=== PATIENT | female | born 1975 | race Caucasian/White ===

== ENCOUNTER 2018-11-03 18:13 | Emergency (ER) | payer OTHER ==
[2018-11-03] MEDS ORDERED: IV NORMAL SALINE 1,000ML 1,000 ML IV SCH (18:29)
--- NOTE | 2018-11-03 18:37 | PHYS DOC ---
Past History Past Medical History: Anxiety, GERD, Other Past Surgical History: No Surgical History Alcohol Use: None Drug Use: None Adult General Chief Complaint Chief Complaint: HEADACHE HPI HPI Patient is a 43 year old female who presents with complaint of headache. Patient states she awoke with headache this morning. Notes that she has history of migraine headaches. Has had associated vomiting and light sensitivity. Denies any known fever. Notes pain is mostly along the right side of her head and is throbbing in nature. States that she has tried to take medication at home for her symptoms but is unable to keep anything down due to her nausea and vomiting. Denies abdominal pain, chest pain, weakness, numbness, loss of vision, or difficulty with speech or swallowing. Currently rates her pain as 10 out of 10. Review of Systems Review of Systems Constitutional: Denies fever or chills [] Eyes: Denies change in visual acuity, redness, or eye pain [] HENT: Denies nasal congestion or sore throat [] Respiratory: Denies cough or shortness of breath [] Cardiovascular: Denies chest pain or edema[] GI: Nausea, vomiting, denies abdominal pain, bloody stools or diarrhea [] : Denies dysuria or hematuria [] Musculoskeletal: Denies back pain or joint pain [] Integument: Denies rash or skin lesions [] Neurologic: Headache, denies focal weakness or sensory changes [] All other systems were reviewed and found to be within normal limits, except as documented in this note. Current Medications Current Medications Current Medications Medications (Trade) Dose Ordered Sig/Osei Start Time Stop Time Status Last Admin Dose Admin Diphenhydramine HCl (Benadryl) 25 mg 1X ONCE 11/03/18 18:45 11/03/18 18:46 Ketorolac Tromethamine (Toradol 30mg Vial) 30 mg 1X ONCE 11/03/18 18:45 11/03/18 18:46 Prochlorperazine Edisylate (Compazine) 10 mg 1X ONCE 11/03/18 18:45 11/03/18 18:46 Sodium Chloride 1,000 ml @ 1,000 mls/hr Q1H 11/03/18 18:29 11/03/18 19:28 Allergies Allergies Allergies Coded Allergies Type Severity Reaction Last Updated Verified No Known Drug Allergies 11/03/18 No Physical Exam Physical Exam Constitutional: Alert, afebrile, appears in moderate to severe discomfort. [] HENT: Normocephalic, atraumatic, bilateral external ears normal, oropharynx moist, no oral exudates, nose normal. [] Eyes: PERRLA, photophobia present, EOMI, conjunctiva normal, no discharge. [] Neck: Normal range of motion, no tenderness, supple, no stridor. [] Cardiovascular:Heart rate regular rhythm, no murmur [] Lungs & Thorax: Bilateral breath sounds clear to auscultation [] Abdomen: Bowel sounds normal, soft, no tenderness, no masses, no pulsatile masses. [] Skin: Warm, dry, no erythema, no rash. [] Back: No tenderness, no CVA tenderness. [] Extremities: No tenderness, no cyanosis, no clubbing, ROM intact, no edema. [] Neurologic: Alert and oriented X 3, normal motor function, normal sensory function, no focal deficits noted. [] Current Patient Data Vital Signs Vital Signs Date Time Temp Pulse Resp B/P (MAP) Pulse Ox O2 Delivery O2 Flow Rate FiO2 11/03/18 18:26 98.2 82 18 100 Room Air Lab Results Laboratory Tests Test 11/03/18 18:55 White Blood Count 7.8 x10^3/uL Red Blood Count 4.50 x10^6/uL Hemoglobin 13.5 g/dL Hematocrit 40.3 % Mean Corpuscular Volume 89 fL Mean Corpuscular Hemoglobin 30 pg Mean Corpuscular Hemoglobin Concent 34 g/dL Red Cell Distribution Width 12.7 % Platelet Count 424 x10^3/uL Neutrophils (%) (Auto) 52 % Lymphocytes (%) (Auto) 38 % Monocytes (%) (Auto) 7 % Eosinophils (%) (Auto) 2 % Basophils (%) (Auto) 1 % Neutrophils # (Auto) 4.0 x10^3uL Lymphocytes # (Auto) 3.0 x10^3/uL Monocytes # (Auto) 0.6 x10^3/uL Eosinophils # (Auto) 0.1 x10^3/uL Basophils # (Auto) 0.1 x10^3/uL Sodium Level 140 mmol/L Potassium Level 4.2 mmol/L Chloride Level 103 mmol/L Carbon Dioxide Level 27 mmol/L Anion Gap 10 Blood Urea Nitrogen 12 mg/dL Creatinine 0.8 mg/dL Estimated GFR (Cockcroft-Gault) 78.3 BUN/Creatinine Ratio 15 Glucose Level 81 mg/dL Calcium Level 9.1 mg/dL Magnesium Level 2.0 mg/dL Total Bilirubin 0.5 mg/dL Aspartate Amino Transf (AST/SGOT) 21 U/L Alanine Aminotransferase (ALT/SGPT) 18 U/L Alkaline Phosphatase 77 U/L Total Protein 7.4 g/dL Albumin 3.7 g/dL Albumin/Globulin Ratio 1.0 Current Medications Medications (Trade) Dose Ordered Sig/Osei Route PRN Reason Start Time Stop Time Status Last Admin Dose Admin Sodium Chloride 1,000 ml @ 1,000 mls/hr Q1H IV 11/03/18 18:29 11/03/18 19:28 DC 11/03/18 19:02 Prochlorperazine Edisylate (Compazine) 10 mg 1X ONCE IV 11/03/18 18:45 11/03/18 18:46 DC 11/03/18 19:02 Diphenhydramine HCl (Benadryl) 25 mg 1X ONCE IVP 11/03/18 18:45 11/03/18 18:46 DC 11/03/18 19:03 Ketorolac Tromethamine (Toradol 30mg Vial) 30 mg 1X ONCE IV 11/03/18 18:45 11/03/18 18:46 DC 11/03/18 19:02 EKG EKG Not performed[] Radiology/Procedures Radiology/Procedures Not performed[] Course & Med Decision Making Course & Med Decision Making Pertinent Labs and Imaging studies reviewed. (See chart for details) Patient was given IV fluids, Compazine, Benadryl, and Toradol. On reevaluation, the patient is resting much more comfortably and says that her headache is much better. Diagnosis appears consistent with migraine headache. Patient discharged with prescription for Zofran and Fioricet. Advised follow-up with primary doctor in the next 4 days for reevaluation. Advised return to emergency department for any worsening symptoms. Patient was understanding and in agreement with treatment plan.[] Dragon Disclaimer Dragon Disclaimer This electronic medical record was generated, in whole or in part, using a voice recognition dictation system. Departure Departure: Impression: Primary Impression: Migraine headache Disposition: HOME, SELF-CARE Condition: IMPROVED Referrals: [facility] (PCP) Patient Instructions: Migraine Headache Additional Instructions: Follow-up with your primary doctor in the next 4 days for reevaluation. Return to the emergency department for any worsening symptoms. Scripts Ondansetron (ONDANSETRON ODT) 4 Mg Tab.rapdis 1 TAB PO Q8HRS PRN for NAUSEA/VOMITING, #20 TAB Prov: GIOVANY MCKEON MD 11/03/18 Butalb/Acetaminophen/Caffeine ([id number] 50-325-40) 1 Each Tablet 1-2 EACH PO Q6HRS PRN for HEADACHE, #30 TAB Prov: GIOVANY MCKEON MD 11/03/18 Problem Qualifiers Primary Impression: Migraine headache Migraine type: unspecified Status migrainosus presence: without status migrainosus Intractability: not intractable Qualified Codes: G43.909 - Migraine, unspecified, not intractable, without status migrainosus GIOVANY MCKEON MD November 03, 2018 18:37
[2018-11-03] MEDS ORDERED: KETOROLAC 30 MG/ML VIAL. IV ONE (18:45)
[2018-11-03] MEDS ORDERED: PROCHLORPERAZINE 10 MG/2 ML VIAL. IV ONE (18:45)
[2018-11-03] MEDS ORDERED: diphenhydrAMINE 50 MG/ML VIAL IVP ONE (18:45)
[2018-11-03 19:22] LABS: BASO # 0.1 x10^3/uL (0.0-0.2); BASO % 1 % (0-3); EOS # 0.1 x10^3/uL (0.0-0.7); EOS % 2 % (0-3); HEMATOCRIT 40.3 % (36.0-47.0); HEMOGLOBIN 13.5 g/dL (12.0-15.5); LYMPH % 38 % (24-48); MEAN CORPUSCULAR HEMOGLOBIN 30 pg (25-35); MEAN CORPUSCULAR HGB CONC 34 g/dL (31-37); MEAN CORPUSCULAR VOLUME 89 fL (79-100); MONO # 0.6 x10^3/uL (0.0-1.1); MONO % 7 % (0-9); NEUT % 52 % (31-73); PLATELET COUNT 424 x10^3/uL (140-400); RED CELL DISTRIBUTION WIDTH 12.7 % (11.5-14.5); WHITE BLOOD COUNT 7.8 x10^3/uL (4.0-11.0)
[2018-11-03 19:37] LABS: ALBUMIN 3.7 g/dL (3.4-5.0); CALCIUM 9.1 mg/dL (8.5-10.1); CREATININE 0.8 mg/dL (0.6-1.0); GFR 78.3; POTASSIUM 4.2 mmol/L (3.5-5.1); TOTAL BILIRUBIN 0.5 mg/dL (0.2-1.0); TOTAL PROTEIN 7.4 g/dL (6.4-8.2)
[2018-11-03] MEDS ORDERED: BUTA1TAB23 PO (20:16)
[2018-11-03] MEDS ORDERED: ONDA4TAB12 PO (20:16)
[2018-11-03 20:30] VITALS: BP 94/57
== END 2018-11-03 20:30 | disposition home or self-care (01) ==
LOC: ER 18:13
DX: G43.909 Migraine, unspecified, not intractable, without status migrainosus (principal); F41.9 Anxiety disorder, unspecified; K21.9 Gastro-esophageal reflux disease without esophagitis; R11.2 Nausea with vomiting, unspecified
CPT/HCPCS: 36415; 80053; 83735; 85025; 96361; 96374; 96375; 99284; J0780; J1200; J1885; J7030

== ENCOUNTER 2020-07-07 20:09 | Emergency (ER) | payer SELFPAY ==
[~2020-07-07] VITALS: Ht 152.4 cm; Wt 45.5 kg
[~2020-07-07 20:09] MED LIST: BUTA1TAB23 PO; ONDA4TAB12 PO
--- NOTE | 2020-07-07 20:36 | PHYS DOC ---
Past History Past Medical History: Anxiety, GERD, Other Past Surgical History: No Surgical History Alcohol Use: None Drug Use: None General Adult EDM: Chief Complaint: COUGH HPI: HPI: Patient is a 44-year-old female presents with congestion, fatigue, body aches, dry cough and sore throat. Patient states that she started feeling bad this morning when she woke up. Denies fever, vomiting, diarrhea. Patient states that she is taking Tylenol today to help with the body aches. Last dose of Tylenol was 3 hours ago. Denies being around anyone with recent illness. History of LC H, fibromyalgia, osteoporosis. Review of Systems: Review of Systems: Constitutional: Denies fever or chills Eyes: Denies change in visual acuity HENT: Reports nasal congestion and sore throat Respiratory: Denies cough or shortness of breath Cardiovascular: Denies chest pain or edema GI: Denies abdominal pain, nausea, vomiting, bloody stools or diarrhea : Denies dysuria Musculoskeletal: Denies back pain or joint pain Integument: Denies rash Neurologic: Denies headache, focal weakness or sensory changes Endocrine: Denies polyuria or polydipsia Lymphatic: Denies swollen glands Psychiatric: Denies depression or anxiety Allergies: Allergies: Allergies Coded Allergies Type Severity Reaction Last Updated Verified No Known Drug Allergies 11/03/18 No Physical Exam: PE: Constitutional: Well developed, well nourished, no acute distress, non-toxic appearance. [] HENT: Normocephalic, atraumatic, bilateral external ears normal, oropharynx moist, no oral exudates, nose normal. [] Eyes: PERRLA, EOMI, conjunctiva normal, no discharge. [] Neck: Normal range of motion, no tenderness, supple, no stridor. [] Cardiovascular:Heart rate regular rhythm, no murmur [] Lungs & Thorax: Bilateral breath sounds clear to auscultation [] Abdomen: Bowel sounds normal, soft, no tenderness, no masses, no pulsatile masses. [] Skin: Warm, dry, no erythema, no rash. [] Back: No tenderness, no CVA tenderness. [] Extremities: No tenderness, no cyanosis, no clubbing, ROM intact, no edema. [] Neurologic: Alert and oriented X 3, normal motor function, normal sensory function, no focal deficits noted. [] Psychologic: Affect normal, judgement normal, mood normal. [] EKG: EKG: [] Radiology/Procedures: Radiology/Procedures: []XR CHEST 1V CLINICAL INDICATIONS: Reason: Cough COMPARISON: None available. Findings: No acute lung infiltrate or pleural effusion or pulmonary edema or lung mass or pneumothorax is seen. Old granulomatous disease is seen within the right hilum. The heart size, pulmonary vasculature, mediastinum and both pat are otherwise unremarkable. IMPRESSION: No acute radiographic abnormality is seen. Electronically signed by: Will Rosa MD (07/07/2020 9:16 PM) [id number] Heart Score: Risk Factors: Risk Factors: DM, Current or recent (<one month) smoker, HTN, HLP, family history of CAD, obesity. Risk Scores: Score 0 - 3: 2.5% MACE over next 6 weeks - Discharge Home Score 4 - 6: 20.3% MACE over next 6 weeks - Admit for Clinical Observation Score 7 - 10: 72.7% MACE over next 6 weeks - Early Invasive Strategies Course & Med Decision Making: Course & Med Decision Making Pertinent Labs and Imaging studies reviewed. (See chart for details) []Patient is a 44-year-old female presents with congestion, fatigue, body aches, dry cough and sore throat. Patient states that she started feeling bad this morning when she woke up. Denies fever, vomiting, diarrhea. Patient states that she is taking Tylenol today to help with the body aches. Last dose of T ylenol was 3 hours ago. Denies being around anyone with recent illness. History of LCH, fibromyalgia, osteoporosis. Chest x-ray, flu swab, Covid swab ordered. Chest Xray shows No acute radiographic abnormality is seen. Influenza negative. UA negative for infection. Will call patient with Covid results if positive. Patient is able to ambulate on her own and is hemodynamically stable. Patient most likely has a viral infection and has been given recommendations on treating virus at home. Will call patient with covid results if positive. Dragon Disclaimer: Sukhjinder Disclaimer: This electronic medical record was generated, in whole or in part, using a voice recognition dictation system. Departure Departure: Impression: Primary Impression: Viral syndrome Disposition: 01 DC HOME SELF CARE/HOMELESS Condition: GOOD Referrals: [facility] (PCP) Patient Instructions: Viral Syndrome Additional Instructions: You were seen in the ED today for cough, sore throat, fatigue. Your flu swab came back negative. We will call you if your covid results come back positive. Please self quarantine for 14 days. Take ibuprofen and Tylenol at home for fever and discomfort. Please return to the ED with worsening symptoms or concerns. EMERGENCY DEPARTMENT GENERAL DISCHARGE INSTRUCTIONS Thank you for coming to [facility] (ED) today and trusting us with you care. We trust that you had a positivie experience in our Emergency Department. If you wish to speak to the department management, you may call the director at [phone]. YOUR FOLLOW UP INSTRUCTIONS ARE FOLLOWS: 1. Do you have a private Doctor? If you do not have a private doctor, please ask for a resource list of physicians or clinics that may be able to assist you with follow up care. 2. The Emergency Physician has interpreted your x-rays. The X-Ray specialist will also review them. If there is a change in the findings, you will be notified in 48 hours when at all possible. 3. A lab test or culture has been done, your results will be reviewed and you will be notified if you need a change in treatment. ADDITIONAL INSTRUCTIONS AND INFORMATION: 1. Your care today has been supervised by a physician who is specially trained in emergency care. Many problems require more than one evaluation for a complete diagnosis and treatment. We recommend that you schedule your follow up appointment as recommended to ensure complete treatment of you illness or injury. If you are unable to obtain follow up care and continue to have a problem, or if your condition worsens, we recommend that you return to the ED. 2. We are not able to safely determine your condition over the phone nor are we able to give sound medical advice over the phone. For these safety reasons, if you call for medical advice we will ask you to come to the ED for further evaluation. 3. If you have any questions regarding these discharge instructions please call the ED at [phone]. SAFETY INFORMATION: In the interest of safety, wellness, and injury prevention; we encourage you to wear your sealbelt, if you smoke; quite smoking, and we encourage family to use a protective helmet for bicycling and other sporting events that present an increased risk for head injury. IF YOUR SYMPTOMS WORSEN OR NEW SYMPTOMS DEVELOP, OR YOU HAVE CONCERNS ABOUT YOUR CONDITION; OR IF YOUR CONDITION WORSENS WHILE YOU ARE WAITING FOR YOUR FOLLOW UP APPOINTMENT; EITHER CONTACT YOUR PRIMARY CARE DOCTOR, THE PHYSICIAN WHOSE NAME AND NUMBER YOU WERE GIVEN, OR RETURN TO THE ED IMMEDIATELY. CAMDEN SAHA APRN Jul 07, 2020 20:36
[2020-07-07] MEDS ORDERED: IBUPROFEN 600 MG TABLET. PO ONE (20:45)
[2020-07-07] MEDS ORDERED: ONDANSETRON ODT 4 MG TAB.RAPDIS ONE (20:47)
[2020-07-07] MEDS ORDERED: ONDANSETRON ODT 4 MG TAB.RAPDIS PO ONE (21:00)
--- NOTE | 2020-07-07 21:18 | RAD ---
XR CHEST 1V CLINICAL INDICATIONS: Reason: Cough COMPARISON: None available. Findings: No acute lung infiltrate or pleural effusion or pulmonary edema or lung mass or pneumothora x is seen. Old granulomatous disease is seen within the right hilum. The heart size, pulmonary vascul ature, mediastinum and both pat are otherwise unremarkable. IMPRESSION: No acute radiographic abnormality is seen. Electronically signed by: Will Rosa MD (07/07/2020 9:16 PM) [id number]
[2020-07-07 21:38] LABS: BILIRUBIN,URINE NEG (NEG); CLARITY,URINE CLEAR; COLOR,URINE YELLOW; GLUCOSE,URINE NEG (NEG); UROBILINOGEN,URINE 0.2 mg/dL (0.2 mg/dL)
[2020-07-07 21:39] LABS: BACTERIA,URINE FEW /HPF (0-FEW); NITRITE,URINE NEG (NEG); SQUAMOUS EPITHELIAL CELL,UR MANY /LPF
[2020-07-07 21:47] LABS: INFLUENZA A PATIENT NEGATIVE (NEGATIVE); INFLUENZA B PATIENT NEGATIVE (NEGATIVE)
[2020-07-07 22:00] VITALS: BP 111/83
== END 2020-07-07 22:00 | disposition home or self-care (01) ==
LOC: ER 20:09
DX: B34.9 Viral infection, unspecified (principal); Z20.822 Contact with and (suspected) exposure to COVID-19; K21.9 Gastro-esophageal reflux disease without esophagitis; F41.9 Anxiety disorder, unspecified
CPT/HCPCS: 71045; 81001; 87804; 99284; C9803; Q0162; U0003

== ENCOUNTER 2020-07-12 22:25 | Emergency (ER) | payer SELFPAY ==
[~2020-07-12] VITALS: Ht 152.4 cm; Wt 45.0 kg
[2020-07-13] VITALS: BP 132/93
--- NOTE | 2020-07-13 00:11 | PHYS DOC ---
Past History Past Medical History: Anxiety, Fibromyalgia, GERD, Other Additional Past Medical Histor: lch, OSTEOPOOSIS Past Surgical History: No Surgical History Alcohol Use: None Drug Use: None General Adult EDM: Chief Complaint: FATIGUE HPI: HPI: ".. I just need some steroid.. I have LCH... and I need to be on a steroid taper..." Patient is a 44 year old female who presents with above hx and complaints of fatigue, generalized myalgia, arthralgia, malaise, and fibromyalgia. 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 . Patient gets all her care at . Patient denies any travel. 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 Patient did not get flu vaccination this year. Patient states she is usually treated with a course of steroids. Patient presented to the ER on 117 with similar symptoms. He was diagnosed with a viral syndrome. Patient did sign a release of records from however they did not come during her entire shift. Patient does smoke tobacco. No current active vomiting diarrhea or fevers. Patient does have a history of fibromyalgia and osteoporosis. Patient is somewhat a poor historian. Review of Systems: Review of Systems: Constitutional: Denies fever or chills Eyes: Denies change in visual acuity HENT: Denies nasal congestion or sore throat Respiratory: Denies cough or shortness of breath Cardiovascular: Denies chest pain or edema GI: Denies abdominal pain, nausea, vomiting, bloody stools or diarrhea : Denies dysuria Musculoskeletal: Complains of generalized myalgia, arthralgia and malaise Integument: Denies rash Neurologic: Denies headache, focal weakness or sensory changes Endocrine: Denies polyuria or polydipsia Lymphatic: Denies swollen glands Psychiatric: Denies depression or anxiety Family History: Family History: Noncontributory to presentation Current Medications: Current Meds: See nursing for home meds Allergies: Allergies: Allergies Coded Allergies Type Severity Reaction Last Updated Verified No Known Drug Allergies 11/03/18 No Physical Exam: PE: Constitutional: no acute distress, non-toxic appearance. [] HENT: Normocephalic, atraumatic, bilateral external ears normal, oropharynx moist, no oral exudates, nose normal. [] Eyes: PERRLA, EOMI, conjunctiva normal, no discharge. [] Neck: Normal range of motion, no tenderness, supple, no stridor. [] Cardiovascular: Bradycardia heart rate regular rhythm, no murmur [] Lungs & Thorax: Bilateral breath sounds equal apex with scattered wheezes auscultation [] Abdomen: Bowel sounds normal, soft, no tenderness, no masses, no pulsatile masses. [] Skin: Warm, dry, no erythema, no rash. [] Back: No tenderness, no CVA tenderness. [] Extremities: No tenderness, no cyanosis, no clubbing, ROM intact, no edema. No cording appreciated Neurologic: Alert and oriented X 3, normal motor function, normal sensory function, no focal deficits noted. [] Psychologic: Affect anxious, judgement normal, mood normal. [] EKG: EKG: My interpretation EKG shows a sinus bradycardia at 50 bpm. Does have a right bundle branch block. No findings acute STEMI with contralateral changes. [] Radiology/Procedures: Radiology/Procedures: [][place] [address] IMAGING REPORT Signed PATIENT: RHONDA MENCHACA ACCOUNT: [id number] : 1975 LOCATION: ER AGE: 44 SEX: F EXAM STATUS: REG ER ORD. PHYSICIAN: JC NORIEGA MD REASON: Chest pain PROCEDURE: PORTABLE CHEST 1V EXAM: XR CHEST 1V 07/13/2020 1:00 AM CLINICAL INDICATION: Chest pain COMPARISON: Chest radiograph 07/07/2020 TECHNIQUE: PA view of the chest FINDINGS: The heart and mediastinum are normal. Lungs are well-expanded. Calcified right hilar and infrahilar granulomas are unchanged. No consolidation, pleural effusion, or pneumothorax. Pulmonary vascularity is normal. The thoracic skeleton is intact. IMPRESSION: No acute cardiopulmonary abnormality. Electronically signed by: Sarika Acevedo MD (07/13/2020 2:27 AM) [id number] DICTATED AND SIGNED BY: SARIKA ACEVEDO MD DATE: 07/13/20 0226 CC: JC NORIEGA MD; PCP,NO ~MTH0 0 Heart Score: HEART Score for Chest Pain: HEART Score for Chest Pain Response (Comments) Value History Slighlty/Non-Suspicious 0 ECG Normal 0 Age < 45 0 Risk Factors 1 or 2 Risk Factors 1 Troponin < Normal Limit 0 Total 1 Risk Factors: Risk Factors: DM, Current or recent (<one month) smoker, HTN, HLP, family history of CAD, obesity. Risk Scores: Score 0 - 3: 2.5% MACE over next 6 weeks - Discharge Home Score 4 - 6: 20.3% MACE over next 6 weeks - Admit for Clinical Observation Score 7 - 10: 72.7% MACE over next 6 weeks - Early Invasive Strategies Course & Med Decision Making: Course & Med Decision Making Pertinent Labs and Imaging studies reviewed. (See chart for details) Patient received 1 dose of Depo-Medrol. Patient to follow-up with [facility] since all her care has been there. And they are familiar with her previous diagnosis of LC H. Patient advised to self isolate. Wear a mask anytime she is away from home that covers her nose and mouth. Patient encouraged to stop smoking. Patient follow-up with primary care. Patient return if any signs. Impression: 1. Viral Syndrome 2. Hx LCH-histiocytosis 3. Fibromyalgia 4. Anxiety 5. GERD 6. History of osteoporosis 7. Tobacco Use [] Dragon Disclaimer: Dragon Disclaimer: This electronic medical record was generated, in whole or in part, using a voice recognition dictation system. Departure Departure: Referrals: PCP,MIAH (PCP) Scripts Prednisone (PREDNISONE) 10 Mg Tablet 10 MG PO UD for PREDNISONE TAPER, #50 TAB 0 Refills Take 3 tablets by mouth twice a day for 3 days, then take 2 tablets by mouth twice a day for 3 days, then take 1 tablet by mouth twice a day for 3 days, then take 1 tablet by mouth daily x 3 days, then stop. Prov: JC NORIEGA MD 07/13/20 Dragon Disclaimer This chart was dictated in whole or in part using Voice Recognition software in a busy, high-work load, and often noisy Emergency Department environment. It may contain unintended and wholly unrecognized errors or omissions. Dragon Disclaimer This chart was dictated in whole or in part using Voice Recognition software in a busy, high-work load, and often noisy Emergency Department environment. It may contain unintended and wholly unrecognized errors or omissions. JC NORIEGA MD Jul 13, 2020 00:11
[2020-07-13] MEDS ORDERED: ACETAMINOPHEN 500 MG TABLET PO ONE (00:45)
--- NOTE | 2020-07-13 00:51 | EKG ---
[address] [address] Test Date: 2020-07-13 Test Time: 00:35:30 Pat Name: RHONDA MENCHACA Department: Room: Gender: F Chemotherapist: : 1975 Requested By: JC NORIEGA Order Number: [id number] Reading MD: Measurements Intervals [place] Rate: 50 P: 63 GA: 160 QRS: 51 QRSD: 94 T: 61 QT: 452 QTc: 415 Interpretive Statements SINUS RHYTHM INCOMPLETE RIGHT BUNDLE BRANCH BLOCK OTHERWISE NORMAL ECG RI6.02 No previous ECG available for comparison
[2020-07-13 01:22] LABS: BASO # 0.1 x10^3/uL (0.0-0.2); BASO % 1 % (0-3); EOS # 0.1 x10^3/uL (0.0-0.7); EOS % 1 % (0-3); HEMATOCRIT 41.1 % (36.0-47.0); HEMOGLOBIN 13.8 g/dL (12.0-15.5); LYMPH # 3.9 x10^3/uL (1.0-4.8); LYMPH % 41 % (24-48); MEAN CORPUSCULAR HEMOGLOBIN 31 pg (25-35); MEAN CORPUSCULAR HGB CONC 34 g/dL (31-37); MEAN CORPUSCULAR VOLUME 91 fL (79-100); MONO # 0.6 x10^3/uL (0.0-1.1); MONO % 7 % (0-9); NEUT # 4.8 x10^3uL (1.8-7.7); NEUT % 50 % (31-73); PLATELET COUNT 313 x10^3/uL (140-400); RED BLOOD COUNT 4.54 x10^6/uL (3.50-5.40); RED CELL DISTRIBUTION WIDTH 12.7 % (11.5-14.5); WHITE BLOOD COUNT 9.6 x10^3/uL (4.0-11.0)
[2020-07-13 01:27] LABS: ALBUMIN 3.9 g/dL (3.4-5.0); CALCIUM 9.2 mg/dL (8.5-10.1); CREATININE 0.9 mg/dL (0.6-1.0); DIRECT BILIRUBIN 0.1 mg/dL (0.0-0.2); TOTAL BILIRUBIN 0.3 mg/dL (0.2-1.0); TOTAL PROTEIN 7.5 g/dL (6.4-8.2)
[2020-07-13] MEDS ORDERED: methylPREDNISolone ACETATE 40 MG/ML VIAL. IM ONE (02:30)
--- NOTE | 2020-07-13 02:30 | RAD ---
EXAM: XR CHEST 1V 07/13/2020 1:00 AM CLINICAL INDICATION: Chest pain COMPARISON: Chest radiograph 07/07/2020 TECHNIQUE: PA view of the chest FINDINGS: The heart and mediastinum are normal. Lungs are well-expanded. Calcified right hilar and infrahilar granulomas are unchanged. No consolidation, pleural effusion, or pneumothorax. Pulmonary vascularity is normal. The thoracic skeleton is intact. IMPRESSION: No acute cardiopulmonary abnormality. Electronically signed by: Sarika Acevedo MD (07/13/2020 2:27 AM) [id number]
[2020-07-13] MEDS ORDERED: PRED-220 PO (03:58)
== END 2020-07-13 04:11 | disposition home or self-care (01) ==
LOC: ER 22:25
DX: B34.9 Viral infection, unspecified (principal); M79.7 Fibromyalgia; F41.9 Anxiety disorder, unspecified; K21.9 Gastro-esophageal reflux disease without esophagitis; D76.3 Other histiocytosis syndromes; M81.0 Age-related osteoporosis without current pathological fracture
CPT/HCPCS: 36415; 71045; 80048; 80076; 84484; 85025; 93005; 96372; 99285; J1030

== ENCOUNTER 2020-11-24 10:17 | Emergency (ER) | payer SELFPAY ==
[~2020-11-24] VITALS: Ht 152.4 cm; Wt 45.0 kg
[~2020-11-24 10:17] MED LIST changes: +PRED-220 PO
--- NOTE | 2020-11-24 10:55 | PHYS DOC ---
Past History Past Medical History: Anxiety, Fibromyalgia, GERD, Other Additional Past Medical Histor: lch, osteoporosis Past Surgical History: No Surgical History Alcohol Use: None Drug Use: None General Adult EDM: Chief Complaint: MULTIPLE COMPLAINTS HPI: HPI: 45-year-old female presents with complaints of generalized weakness and fatigue. She states that this all started with bad teeth several weeks ago. She has upper dentures. Needs some more teeth pulled. She has not had the money to get it done. She denies fever or chills. Review of Systems: Review of Systems: Constitutional: Generalized fatigue. Denies fever or chills Eyes: Denies change in visual acuity HENT: Dental infection Respiratory: Denies cough or shortness of breath Cardiovascular: Denies chest pain or edema GI: Denies abdominal pain, nausea, vomiting, bloody stools or diarrhea : Denies dysuria Musculoskeletal: Denies back pain or joint pain Integument: Denies rash Neurologic: Denies headache, focal weakness or sensory changes Endocrine: Denies polyuria or polydipsia Lymphatic: Denies swollen glands Psychiatric: Denies depression or anxiety Allergies: Allergies: Allergies Coded Allergies Type Severity Reaction Last Updated Verified codeine Allergy Unknown 11/24/20 Yes Physical Exam: PE: Constitutional: Well developed, well nourished, no acute distress, non-toxic appearance. [] HENT: Normocephalic, atraumatic, bilateral external ears normal, oropharynx moist, no oral exudates, nose normal. Poor dentition with abscess below tooth #23 [] Eyes: PERRLA, EOMI, conjunctiva normal, no discharge. [] Neck: Normal range of motion, no tenderness, supple, no stridor. [] Cardiovascular:Heart rate regular rhythm, no murmur [] Lungs & Thorax: Bilateral breath sounds clear to auscultation [] Abdomen: Bowel sounds normal, soft, no tenderness, no masses, no pulsatile masses. [] Skin: Warm, dry, no erythema, no rash. [] Back: No tenderness, no CVA tenderness. [] Extremities: No tenderness, no cyanosis, no clubbing, ROM intact, no edema. [] Neurologic: Alert and oriented X 3, normal motor function, normal sensory function, no focal deficits noted. [] Psychologic: Affect normal, judgement normal, mood normal. [] Current Patient Data: Vital Signs: Vital Signs Date Time Temp Pulse Resp B/P (MAP) Pulse Ox O2 Delivery O2 Flow Rate FiO2 11/24/20 10:25 98.4 78 14 137/95 (109) 98 Room Air EKG: EKG: [] Radiology/Procedures: Radiology/Procedures: [] Heart Score: C/O Chest Pain: N/A Risk Factors: Risk Factors: DM, Current or recent (<one month) smoker, HTN, HLP, family history of CAD, obesity. Risk Scores: Score 0 - 3: 2.5% MACE over next 6 weeks - Discharge Home Score 4 - 6: 20.3% MACE over next 6 weeks - Admit for Clinical Observation Score 7 - 10: 72.7% MACE over next 6 weeks - Early Invasive Strategies Course & Med Decision Making: Course & Med Decision Making Pertinent Labs and Imaging studies reviewed. (See chart for details) The patient appears to have dental infection with abscess. We will numb the area with viscous lidocaine and then do an incision and drain. See note below for more details. Labs are unremarkable. We have given the patient a gram of Rocephin and 500mg Flagyl in the ED followed by Augmentin at discharge. [] Dragon Disclaimer: Dragon Disclaimer: This electronic medical record was generated, in whole or in part, using a voice recognition dictation system. Departure Departure: Impression: Primary Impression: Infected dental caries Disposition: HOME / SELF CARE / HOMELESS Condition: IMPROVED Referrals: PCP,UNKNOWN (PCP) Patient Instructions: Dental Abscess Scripts Amoxicillin/Potassium Clav (AUGMENTIN [id number] TABLET) 1 Each Tablet 1 TAB PO BID for dental infection for 10 Days, #20 TAB 0 Refills Prov: UVALDO SAN DO 11/24/20 UVALDO SAN DO Nov 24, 2020 10:55
[2020-11-24] MEDS ORDERED: IV NORMAL SALINE 1,000ML 1,000 ML IV ONE (11:00)
[2020-11-24] MEDS ORDERED: LIDOCAINE 2% VISCOUS 15 ML SOLUTION. SWSW ONE (11:00)
[2020-11-24] MEDS ORDERED: IV NORMAL SALINE 50ML 50 ML ONE (11:01)
[2020-11-24] MEDS ORDERED: cefTRIAXone SODIUM 1 GM VIAL ONE (11:01)
[2020-11-24 11:28] LABS: CALCIUM 9.5 mg/dL (8.5-10.1); POTASSIUM 4.1 mmol/L (3.5-5.1)
[2020-11-24 11:34] LABS: ALBUMIN 4.1 g/dL (3.4-5.0); TOTAL BILIRUBIN 0.5 mg/dL (0.2-1.0); TOTAL PROTEIN 8.1 g/dL (6.4-8.2)
[2020-11-24] MEDS ORDERED: AMOX1TAB61 PO (11:34)
[2020-11-24] MEDS ORDERED: metroNIDAZOLE 500 MG TABLET PO ONE (11:45)
[2020-11-24 11:52] VITALS: BP 133/70
[2020-11-24 12:04] LABS: BASO # 0.1 x10^3/uL (0.0-0.2); BASO % 1 % (0-3); EOS # 0.1 x10^3/uL (0.0-0.7); EOS % 1 % (0-3); HEMATOCRIT 42.4 % (36.0-47.0); HEMOGLOBIN 14.3 g/dL (12.0-15.5); LYMPH # 2.4 x10^3/uL (1.0-4.8); LYMPH % 30 % (24-48); MEAN CORPUSCULAR HEMOGLOBIN 31 pg (25-35); MEAN CORPUSCULAR HGB CONC 34 g/dL (31-37); MEAN CORPUSCULAR VOLUME 93 fL (79-100); MONO # 0.7 x10^3/uL (0.0-1.1); MONO % 9 % (0-9); NEUT # 4.9 x10^3uL (1.8-7.7); NEUT % 60 % (31-73); PLATELET COUNT 317 x10^3/uL (140-400); RED BLOOD COUNT 4.59 x10^6/uL (3.50-5.40); RED CELL DISTRIBUTION WIDTH 12.9 % (11.5-14.5); WHITE BLOOD COUNT 8.1 x10^3/uL (4.0-11.0)
== END 2020-11-24 12:37 | disposition home or self-care (01) ==
LOC: ER 10:17
DX: K02.9 Dental caries, unspecified (principal); K04.7 Periapical abscess without sinus; F41.9 Anxiety disorder, unspecified; M79.7 Fibromyalgia; K21.9 Gastro-esophageal reflux disease without esophagitis; Z88.5 Allergy status to narcotic agent
CPT/HCPCS: 36415; 80053; 85025; 96365; 99284; J0696; J7030